=== PATIENT | male | born 2000 | race Caucasian/White ===

== ENCOUNTER 2021-07-19 15:42 | Emergency (ER) | payer BC ==
[~2021-07-19] VITALS: Ht 187 cm; Wt 63.0 kg
--- OUTSIDE RECORDS SUMMARY | 2021-07-19 15:49 | XMS REPORT | Summary of Care ---
Author Author [facility] Organization [facility] Address Unknown Phone Unavailable Encounter WILMA Duque [id number] Date(s): 06/13/21 - 06/18/21 [facility] [id number] [id number] Encounter Diagnosis Laceration of left foot with complication (Discharge Diagnosis) - 06/13/21 Left foot infection (Discharge Diagnosis) - 06/13/21 Discharge Disposition: Home - 01 Attending Physician: IVÁN BARRON, KHUSHBU Arias Vital Signs Most recent to 1 oldest [Reference Range]: Temperature 97.8 DegF [96.8-99.7 DegF] (06/13/21 11:12 AM) Temp Method Temporal (06/13/21 11:12 AM) Pulse Rate [60-100 65 bpm bpm] (06/13/21 11:12 AM) Respiratory Rate 18 br/min [15-20 br/min] (06/13/21 11:12 AM) Mean Arterial 89 mmHg Pressure [65 mmHg] (06/13/21 11:12 AM) Blood Pressure 114/77 mmHg [90-180/50-90 mmHg] (06/13/21 11:12 AM) Blood Pressure Automatic Method (06/13/21 11:12 AM) Blood Pressure Sitting Position (06/13/21 11:12 AM) Problem List No Known Problems Allergies, Adverse Reactions, Alerts No Known Allergies Medications cephalexin 500 mg oral capsule 1 CAP, PO, TID (3 times a day), X 7 day, # 21 CAP, 0 Refill(s), Pharmacy: [facility] [address] [place] [address] Start Date: 06/13/21 Stop Date: 06/20/21 Status: Ordered Results No data available for this section Immunizations No data available for this section Procedures No data available for this section Social History Social History Type Response Functional Status No data available for this section Assessment and Plan No data available for this section Hospital Discharge Instructions No data available for this section
[2021-07-19] MEDS ORDERED: proPOfol 200 MG/20 ML (DIPRIVAN) VIAL IV ONE (16:00)
[2021-07-19] MEDS ORDERED: ONDANSETRON 4 MG/2 ML (SDV) Z0FRAN IVP ONE (16:00)
[2021-07-19] MEDS ORDERED: fentaNYL INJ 100 MCG/2 ML AMP IVP ONE (16:00)
[2021-07-19] MEDS ORDERED: NS IV 1000 ML 1,000 ML IV SCH (16:00)
--- NOTE | 2021-07-19 16:00 | ED Upper Extremity ---
General Chief Complaint: Upper Extremity Stated Complaint: L SHOULDER CAN'T MOVE/PAIN Source: patient, other Exam Limitations: no limitations History of Present Illness Date Seen by Provider: Jul 19, 2021 Time Seen by Provider: 15:48 Initial Comments Patient is a 20-year-old male who presents to the emergency room today with a chief complaint of slip and fall onto the left shoulder. Patient was at a constitution party and drinking some alcohol when he fell directly onto his left shoulder. Complains of intense pain to the left shoulder area. Denies any numbness tingling to the left arm. Has never injured this shoulder before. No other complaints of illness or injury. Did not hit his head or have a loss of consciousness. Patient states he is otherwise healthy no medical problems. Last ate at about 11:00 this morning. Last drink was at about 330. No food or medical allergies. All other review of systems reviewed and negative except as stated. Onset: just prior to arrival Severity: severe Pain/Injury Location: left shoulder Method of Injury: fell Modifying Factors: Improves With Immobilization; Worse With Jarring, Worse With Movement Allergies and Home Medications Allergies Coded Allergies: No Known Drug Allergies (Unverified , 07/19/21) Patient Home Medication List Home Medication List Reviewed: Yes Review of Systems Constitutional: see HPI EENTM: no symptoms reported Respiratory: no symptoms reported Cardiovascular: no symptoms reported Gastrointestinal: no symptoms reported Genitourinary: no symptoms reported Musculoskeletal: joint pain (left shoulder) All Other Systems Reviewed Negative Unless Noted: Yes Physical Exam Vital Signs Vital Signs - First Documented 07/19/21 07/19/21 15:55 16:33 Temp 36.0 Pulse 109 Resp 16 B/P (MAP) 93/51 (65) Pulse Ox 100 O2 Delivery Room Air O2 Flow Rate 2.00 Capillary Refill : Height, Weight, BMI Height: '" Weight: lbs. oz. kg; BMI Method: General Appearance: WD/WN, mild distress HEENT: pharynx normal Cardiovascular: regular rate, rhythm Respiratory: lungs clear, normal breath sounds Gastrointestinal: non tender, soft Shoulder: asymmetry, bone tenderness, deformity (Patient has obvious left shoulder dislocation with glenoid fossa palpable; no active range of motion secondary to intense pain), limited ROM, pain Elbow/Forearm: normal inspection, non-tender Wrist: Yes normal inspection, Yes non-tender, Yes no evidence of injury, Yes normal ROM Hand: normal inspection, non-tender, no evidence of injury, normal ROM Neurologic/Tendon: normal sensation Neurologic/Psychiatric: alert, normal mood/affect, oriented x 3 Skin: normal color, warm/dry Procedures/Interventions Splinting and Joint Reduction : Location: left shoulder joint Pre-Proc Neuro Vasc Exam: normal Post-Proc Neuro Vasc Exam: normal Joint Reduction Site: shoulder (L) Reduction Attempts: 1 Pre-Procedure NV Exam: Yes post joint reduction film: joint reduced Arm Sling: Large Progress/Results/Core Measures Results/Orders My Orders Orders - MAYLIN DIAMOND MD Shoulder, Left, 2 Views (07/19/21 15:56) Ondansetron Injection (Zofran Injectio (07/19/21 16:00) Fentanyl Inj (Sublimaze Injection) (07/19/21 16:00) Ns Iv 1000 Ml (Sodium Chloride 0.9%) (07/19/21 16:00) Propofol Injection (Diprivan Injection) (07/19/21 16:00) Ed Iv/Invasive Line Start (07/19/21 16:00) Shoulder, Left, 3 Views (07/19/21 16:33) Medications Given in ED Current Medications Medications Dose Ordered Sig/Sony Route Start Time Stop Time Status Last Admin Dose Admin Fentanyl Citrate 25 mcg ONCE ONCE IVP 07/19/21 16:00 07/19/21 16:01 DC 07/19/21 16:05 25 MCG Ondansetron HCl 4 mg ONCE ONCE IVP 07/19/21 16:00 07/19/21 16:01 DC 07/19/21 16:06 4 MG Propofol 50 mg ONCE ONCE IV 07/19/21 16:00 07/19/21 16:01 DC 07/19/21 16:22 50 MG Vital Signs/I&O 07/19/21 07/19/21 15:55 16:33 Temp 36.0 Pulse 109 Resp 16 B/P (MAP) 93/51 (65) Pulse Ox 100 O2 Delivery Room Air Nasal Cannula O2 Flow Rate 2.00 Diagnostic Imaging Diagonstic Imaging: Xray Plain Films/CT/US/NM/MRI: other (shoulder) Comments [facility] [place], [place] NAME: ERIN CHRISTIE MED REC#: [id number] PT STATUS: REG ER : 2000 PHYSICIAN: MAYLIN DIAMOND MD ADMIT DATE: 07/19/21/ER Draft Date of Exam:07/19/21 SHOULDER, LEFT, 2 VIEWS INDICATION: Shoulder pain. EXAMINATION: Left shoulder at 4:10 p.m. AP and transaxial views were obtained. COMPARISON: There is no prior study available for comparison. FINDINGS: There has been an anterior inferior dislocation of the humeral head with respect to the glenoid. There is no fracture identified. The soft tissues are unremarkable. IMPRESSION: 1. There has been an anterior inferior dislocation of the humeral head with respect to the glenoid. There is no acute bony abnormality noted otherwise. 2. A follow-up exam after reduction would be recommended. Dictated on workstation # [id number] Dict: 07/19/21 1615 Trans: 07/19/21 162 PJE [id number] Interpreted by: PATRICIA MERLOS MD Electronically signed by: [facility] [place] [place] NAME: ERIN CHRISTIE [facility] REC#: [id number] PT STATUS: REG ER : 2000 PHYSICIAN: MAYLIN DIAMOND MD ADMIT DATE: 07/19/21/ER Draft Date of Exam:07/19/21 SHOULDER, LEFT, 3 VIEWS INDICATION: Shoulder pain. EXAMINATION: Left shoulder at 4:47 p.m. Three views were obtained. FINDINGS: The exam performed prior to the study of 4:10 PM noted anterior inferior dislocation of the humeral head with respect to glenoid. In the interval since the prior study, the dislocation has been reduced. There is still no clear evidence for a fracture. Soft tissues are unremarkable. IMPRESSION: There has been successful reduction of the anterior inferior dislocation of the humeral head. There is no fracture identified. Dictated on workstation # [id number] Dict: 07/19/21 1652 Trans: 07/19/21 1706 PJE [id number] Interpreted by: PATRICIA MERLOS MD Electronically signed by: Departure Impression Primary Impression: Dislocation of left shoulder joint Qualified Codes: S43.005A - Unspecified dislocation of left shoulder joint, initial encounter Disposition: HOME, SELF-CARE Condition: Stable Departure-Patient Inst. Decision time for Depature: 16:31 Referrals: NO,LOCAL PHYSICIAN (PCP) Primary Care Physician DIA CARPENTER MD Patient Instructions: Shoulder Dislocation (DC) Add. Discharge Instructions: Wear the sling for at least the next 2 days. Take [id number]-ghr-uhnoyfx ibuprofen 3 tablets with dinner 600 mg every 6-8 hours with food as needed for pain. Come back to the emergency room if you notice any increasing pain, numbness, weakness of the left arm or any other emergent concerning symptoms. Follow-up with Dr. Carpenter, orthopedic surgeon for further evaluation of your left shoulder or any other concerns. MAYLIN DIAMOND MD Jul 19, 2021 16:00
--- NOTE | 2021-07-19 16:20 | Diagnostic Imaging Report ---
INDICATION: Shoulder pain. EXAMINATION: Left shoulder at 4:10 p.m. AP and transaxial views were obtained. COMPARISON: There is no prior study available for comparison. FINDINGS: There has been an anterior inferior dislocation of the humeral head with respect to the glenoid. There is no fracture identified. The soft tissues are unremarkable. IMPRESSION: 1. There has been an anterior inferior dislocation of the humeral head with respect to the glenoid. There is no acute bony abnormality noted otherwise. 2. A follow-up exam after reduction would be recommended. Dictated by: Dictated on workstation # [id number]
--- NOTE | 2021-07-19 17:07 | Diagnostic Imaging Report ---
INDICATION: Shoulder pain. EXAMINATION: Left shoulder at 4:47 p.m. Three views were obtained. FINDINGS: The exam performed prior to the study of 4:10 PM noted anterior inferior dislocation of the humeral head with respect to glenoid. In the interval since the prior study, the dislocation has been reduced. There is still no clear evidence for a fracture. Soft tissues are unremarkable. IMPRESSION: There has been successful reduction of the anterior inferior dislocation of the humeral head. There is still no fracture identified. Dictated by: Dictated on workstation # [id number]
[2021-07-19 17:29] VITALS: BP 121/83
== END 2021-07-19 17:29 | disposition home or self-care (01) ==
LOC: ER 15:45
DX: S43.005A Unspecified dislocation of left shoulder joint, initial encounter (principal); W01.0XXA Fall on same level from slipping, tripping and stumbling without subsequent striking against object, initial encounter
CPT/HCPCS: 23655; 73030; 93041

== ENCOUNTER 2023-03-24 04:19 | Emergency (ER) | payer SELFPAY ==
[~2023-03-24] VITALS: Ht 187 cm; Wt 140.0 kg
[2023-03-24] MEDS ORDERED: proPOfol 200 MG/20 ML (DIPRIVAN) VIAL IV ONE ×2 (04:34→04:45)
--- NOTE | 2023-03-24 04:41 | ED Upper Extremity ---
General Chief Complaint: Upper Extremity Stated Complaint: LEFT ARM INJURY Source: patient Exam Limitations: no limitations History of Present Illness Date Seen by Provider: March 24, 2023 Time Seen by Provider: 04:25 Initial Comments Patient is a 22yo male who presents to the ER with a complaint of left shoulder dislocation while "wrestling" with a girl friend. Has had 2 prior dislocations to the shoulder. Last one about a year ago. c/o pain. no other injury. Onset: just prior to arrival Severity: severe Pain/Injury Location: left shoulder Method of Injury: direct blow (wrestling with friends) Modifying Factors: Improves With Immobilization; Worse With Jarring, Worse With Movement Allergies and Home Medications Allergies Coded Allergies: No Known Drug Allergies (Unverified , 07/19/21) Patient Home Medication List Home Medication List Reviewed: Yes Review of Systems Constitutional: see HPI Respiratory: no symptoms reported Cardiovascular: no symptoms reported Gastrointestinal: no symptoms reported Musculoskeletal: joint pain (left shoulder) All Other Systems Reviewed Negative Unless Noted: Yes Physical Exam Vital Signs Vital Signs - First Documented 03/24/23 04:30 Temp 36.0 Pulse 114 Resp 20 B/P (MAP) 105/74 (84) Pulse Ox 98 O2 Delivery Room Air Capillary Refill : Height, Weight, BMI Height: '" Weight: lbs. oz. kg; 18.00 BMI Method: General Appearance: mild distress, thin Cardiovascular: regular rate, rhythm Respiratory: lungs clear, normal breath sounds, no respiratory distress, no accessory muscle use Shoulder: deformity, limited ROM, pain Elbow/Forearm: normal inspection, normal ROM, Left Wrist: Yes normal inspection, Yes normal ROM Hand: normal ROM, Left Neurologic/Tendon: normal sensation Neurologic/Psychiatric: alert, normal mood/affect, oriented x 3 Skin: normal color, warm/dry Procedures/Interventions Patient Education: Explained Benefits, Explained Risks, Pt. Ack. Understanding Agreement on procedure with pt: Yes Breath Sounds per Auscultation: Clear Heart Sounds per Auscultation: Regular Airway Exam: Mouth opens >2 fingers, Neck Full Range of Motion, Visulation of Uvula Sedation Adminstration Time: 04:59 Total Time spent in CS 25 successful reduction of left shoulder dislocation after 1 attempt traction/counter traction Re-examination Time: 05:30 Re-examination awake and alert, feeling better Splinting and Joint Reduction : Pre-Proc Neuro Vasc Exam: normal Post-Proc Neuro Vasc Exam: normal Joint Reduction Site: shoulder (L) Pre-Procedure NV Exam: Yes Arm Sling: Medium Progress/Results/Core Measures Results/Orders My Orders Orders - MAYLIN DIAMOND MD Shoulder, Left, 2 Views (03/24/23 04:35) Ed Iv/Invasive Line Start (03/24/23 04:35) Propofol Injection (Diprivan Injection) (03/24/23 04:45) Propofol Injection (Diprivan Injection) (03/24/23 04:34) Ns Iv 1000 Ml (Sodium Chloride 0.9%) (03/24/23 04:56) Shoulder, Left, 1 View (03/24/23 05:04) Medications Given in ED Vital Signs/I&O Diagnostic Imaging Diagonstic Imaging: Xray Comments independent interp by me - anterior shoulder dislocation, no visible fracture Diagonstic Imaging: Xray Comments post reduction, single view - independently interpreted by me - successful reduction; still no signs of fracture Departure Impression Primary Impression: Dislocation of left shoulder joint Qualified Codes: S43.005A - Unspecified dislocation of left shoulder joint, initial encounter Disposition: HOME, SELF-CARE Condition: Improved Departure-Patient Inst. Decision time for Depature: 05:55 Referrals: NO,LOCAL PHYSICIAN (PCP) Primary Care Physician DIA BROWN MD Patient Instructions: Moderate Sedation in Adults (DC), Shoulder Dislocation Add. Discharge Instructions: Wear the sling for the next week. You can take your arm out intermittently for some gentle range of motion exercises. Please call and follow-up with the orthopedic surgeon, Dr. Brown in 1-2 weeks. You can take nzcs-usf-jfpqvcm ibuprofen 3 tablets which is 600 mg every 6 hours as needed for pain. Always take ibuprofen with food. If you have any new, concerning or emergent complaints please return to the emergency department for reevaluation. Work/School Note: Work Release Form Date Seen in the Emergency Department: March 24, 2023 Return to Work: March 25, 2023 Copy Copies To 1: DIA BROWN MD, KATHRYN M MD March 24, 2023 04:41
[2023-03-24] MEDS ORDERED: NS IV 1000 ML 1,000 ML ONE (04:56)
[2023-03-24 05:40] VITALS: BP 111/75
--- NOTE | 2023-03-24 05:49 | Diagnostic Imaging Report ---
SHOULDER, LEFT, 1 VIEW INDICATION: Postreduction imaging of shoulder dislocation COMPARISON: Earlier same day at 4:49 AM FINDINGS AND IMPRESSION: 1. The anterior shoulder dislocation has been reduced. 2. There is a potential Hill-Sachs deformity humeral head. Dictated by: Dictated on workstation # [id number]
--- NOTE | 2023-03-24 05:53 | Diagnostic Imaging Report ---
SHOULDER, LEFT, 2 VIEWS INDICATION: Left shoulder injury COMPARISON: 01/19/2021 TECHNIQUE: 2 views of the left shoulder FINDINGS: Anterior dislocation of the glenohumeral joint is present. There is a potential impaction injury in the posterior aspect of the humeral head. No osseous Bankart is appreciated. No avulsion fracture of the greater tuberosity. AC joint alignment is normal. IMPRESSION: 1. Anterior shoulder dislocation. 2. Potential Hill-Sachs fracture. Dictated by: Dictated on workstation # [id number]
== END 2023-03-24 05:39 | disposition home or self-care (01) ==
LOC: EDUNIT# 04:19 → ER 04:22
DX: S43.005A Unspecified dislocation of left shoulder joint, initial encounter (principal); Z28.310 Unvaccinated for COVID-19; X58.XXXA Exposure to other specified factors, initial encounter; Y93.72 Activity, wrestling
CPT/HCPCS: 23655; 73020; 73030; 93041